=== PATIENT | male | born 1950 | race Caucasian/White ===

== ENCOUNTER 2021-01-07 04:36 | Emergency (ER) | payer MEDICARE ==
[~2021-01-07] VITALS: Ht 172.7 cm; Wt 90.9 kg
[2021-01-07 04:39] VITALS: Ht 172.7 cm; Wt 90.9 kg
[2021-01-07] MEDS ORDERED: PROTONIX40 MG PO (04:43)
[2021-01-07] MEDS ORDERED: LISINOPRIL20 MG PO (04:43)
[2021-01-07] MEDS ORDERED: BAYER CHEWABLE81 MG PO (04:44)
[2021-01-07] MEDS ORDERED: ZOCOR20 MG PO (04:44)
[2021-01-07] MEDS ORDERED: HYDROCODONE-AC1 EAC2 PO (06:17)
[2021-01-07 06:25] VITALS: BP 122/65
== END 2021-01-07 06:26 | disposition home or self-care (01) ==
LOC: D.ER 04:36
DX: S01.01XA Laceration without foreign body of scalp, initial encounter (principal); I10 Essential (primary) hypertension